=== PATIENT | female | born 1995 | race Two or more races ===

== ENCOUNTER 2024-12-27 12:31 | Emergency (ER) | payer MEDICAID, SELFPAY ==
[2024-12-27 13:08] VITALS: BP 122/79; PULSE 60; RESP 16; TEMP 37.1; O2SAT 99; BMI 18.5
--- NOTE | 2024-12-27 13:13 | PD.EDSKIN ---
ED Skin Abcess FB-RME/HPI General Chief complaint: Extremity Problem,Nontraumatic Stated complaint: Right lower leg edema X 1 week Time Seen by Provider: 12/27/24 13:05 Arrival date/time: 12/27/24 12:31 29-year-old female presents to the emergency room today for complaints of infected insect bites right lower extremity patient reports that she started scratching at some mosquito bites on her right leg which caused her to become swollen. Patient was no fever nausea vomiting reports no chance of Limitations: no limitations Related Data Previous Rx's ?Medication ?Instructions ?Recorded cephalexin 500 mg capsule (Keflex) 500 mg PO QID #40 caps 06/25/20 nitrofurantoin 100 mg PO BID #14 caps 06/04/21 monohydrate/macrocrystals 100 mg capsule (Macrobid) phenazopyridine 100 mg tablet 100 mg PO TID PRN pain 6 doses #6 06/04/21 (Pyridium) tabs clindamycin HCl 300 mg capsule 300 mg PO TID #30 caps 07/25/22 ibuprofen 800 mg tablet 800 mg PO TID PRN pain #30 tabs 07/25/22 diphenhydramine HCl 25 mg capsule 25 mg PO Q8H PRN allergic symptoms 12/27/24 (Benadryl) #30 caps doxycycline hyclate 100 mg capsule 100 mg PO BID 7 days #14 caps 12/27/24 mupirocin 2 % topical ointment 1 applic topical TID 10 days #22 12/27/24 grams Allergies Allergy/AdvReac Type Severity Reaction Status Date / Time No Known Allergies Allergy Verified 12/27/24 12:37 Review of Systems Review of Systems Systems Reviewed: All systems reviewed, normal except as documented Constitutional Constitutional: Reports system reviewed and no additional complaints, except as documented, Denies fever(s) and Denies headache(s) Eyes Eyes: Reports system reviewed and no additional complaints, except as documented and Denies blurry vision ENT Ears, Nose, Mouth, and Throat: Reports system reviewed and no additional complaints, except as documented, Denies headache(s), Denies nasal congestion and Denies nasal discharge Cardiovascular Cardiovascular: Reports system reviewed and no additional complaints, except as documented, Denies chest pain and Denies dyspnea Respiratory Respiratory: Reports system reviewed and no additional complaints, except as documented, Denies chest congestion, Denies cough and Denies dyspnea Gastrointestinal Gastrointestinal: Reports system reviewed and no additional complaints, except as documented and Denies abdominal pain Integumentary/Breasts Skin/Breast: Reports system reviewed and no additional complaints, except as documented, Reports pruritus, Denies rash and Reports other (Infected insect bites right lower extremity) Neurologic Neurologic: Reports system reviewed and no additional complaints, except as documented, Reports as per HPI and Denies headache(s) Past Medical History Past Medical History NEUROLOGIC: Negative Neurological Disorders or Seizures CARDIAC: Negative Cardiac Disorders or Congestive Heart Failure RESPIRATORY: Negative Chronic Obstructive Pulmonary Disease (COPD) GASTROINTESTINAL: Positive Gastrointestinal Disorders and Gall Bladder Disease (LAP 2012) GENITOURINARY: Negative Genitourinary Disorders or Renal Disease REPRODUCTIVE: Positive Previous Pregnancies (x4 including 1 SAB); Negative Pelvic Inflammatory Disease MUSCULOSKELETAL: Positive Musculoskeletal Disorders ENDOCRINE: Negative Endocrine Disorders, Diabetes Mellitus Type 1 or Diabetes Mellitus Type 2 HEMATOLOGIC: Positive Anemia; Negative Blood Disorders OTHER HISTORY: Positive Chicken Pox; Negative Hospitalization, Autoimmune Disease, Down Syndrome, Developmental Delay, Shingles, Falls, Blood Transfusions, Blood Transfusion Reaction, Anesthesia Reactions, Organ Transplant, Chemotherapy or Radiation Therapy Family History FAMILY HISTORY: Positive Family Respiratory Disorders (MOTHER (ASTHMA)), Family Cardiac Disorders (MOTHER (HTN)), Family Gastrointestinal Problems (SISTER (CHOLECYSTECTOMY)) and Family Surgery (MOTHER,SISTER,FATHER); Negative Family Psychiatric Problems, Family Cancer or Family Anesthesia Reaction Surgical History SURGICAL: Negative Cardiac Surgery, Section or Organ Transplant Social History SMOKING STATUS: Never smoker SECOND HAND EXPOSURE: No ED Exam General Limitations: Present no limitations General appearance: Present alert and in no apparent distress Head Head exam: Present atraumatic, normocephalic and normal inspection Eye Eye exam: Present normal appearance, PERRL and EOMI ENT ENT exam: Present normal exam, normal oropharynx and mucous membranes moist Neck Neck exam: Present normal inspection, full ROM and trachea midline Chest Chest inspection: Present normal inspection and symmetric chest wall rise Respiratory Respiratory exam: Present normal lung sounds bilaterally Cardiovascular Cardiovascular exam: Present regular rate, normal rhythm and normal heart sounds Abdominal Exam Abdominal exam: Present soft and normal bowel sounds Extremities Exam Extremities exam: Present full ROM and tenderness (Right lower extremity insect bites, erythema, infection) Back Exam Back exam: Present normal inspection and full ROM Neurological Exam Neurological exam: Present alert, oriented X3 and CN II-XII intact Psychiatric Psychiatric exam: Present normal affect and normal mood Skin Skin exam: Present warm, dry and other (Right lower extremity insect bites, erythema, infection) Course Quality Measures none Orders Category Date Time Status Dexamethasone Inj [Decadron Inj] Med 12/27/24 13:10 Discontinued 10 mg PO X1 ONE DiphenhydrAMINE [Benadryl] Med 12/27/24 13:10 Discontinued 25 mg PO X1 ONE Vital Signs Vital signs: Vital Signs Temperature 98.8 F 12/27/24 13:08 Pulse Rate 60 12/27/24 13:08 Respiratory Rate 16 12/27/24 13:08 Blood Pressure 122/79 12/27/24 13:08 Pulse Oximetry (%) 99 12/27/24 13:08 Oxygen Delivery Method Room Air 12/27/24 13:08 O2 saturation 99% on room air within normal limits Skin / Abscess / Foreign Body MDM Narrative MDM Narrative:: 29-year-old female presents to the emergency room today for complaints of infected insect bites right lower extremity patient reports that she started scratching at some mosquito bites on her right leg which caused her to become swollen. Patient was no fever nausea vomiting reports no chance of On exam patient well-appearing patient does not appear ill or toxic no acute distress Exam is consistent with infected insect bites Patient medicated here discharged home medication Patient discharged home in no distress to follow-up with primary care doctor in the next 24 to 48 hours and for any worsening symptoms to return to the ER immediately Patient data External records reviewed:: [facility] previous records Clinical information provided by:: patient Social determinants that could affect healthcare access:: none Patient has the following chronic illnesses:: None How is presenting disease/condition affected by chronic disease/condition?: no chronic disease Evaluation data The following diagnostics were reviewed and interpreted by me:: other (specify) (N/A) Lab and/or radiology exams considered but not ordered:: Consider not ordered Interpretation Summary: N/A Medications / Prescriptions Medications or Prescriptions considered but not ordered:: Given Medication administrations:: Medication Administration History Discontinued Medications Dexamethasone Sodium Phosphate (Dexamethasone Sod Phos Inj 10 Mg/Ml Vial) 10 mg PO X1 ONE Stop: 12/27/24 13:11 Last Admin: 12/27/24 13:32 Dose: 10 mg Documented By: Diphenhydramine HCl (Diphenhydramine 25 Mg Capsule) 25 mg PO X1 ONE Stop: 12/27/24 13:11 Last Admin: 12/27/24 13:31 Dose: 25 mg Documented By: Given Consultations Consultation(s) initiated? (list below): No Diagnosis Skin/Abscess Differential Diagnosis: abscess of skin or subcutaneous tissue, cellulitis and insect bites Most likely diagnosis given after review of the tests above:: Infected insect bites Admission Indicated Admission indicated?: not indicated Admission Request Was there a request for admission?: No Disposition Plan Disposition Plan: Discharge Discharge Attestation Discharge Attestation: The patient and all family members were given an opportunity to ask questions and understood the discharge instructions. Discharge instructions specifically effects, indications for sooner follow up or return to the emergency department, and the expected course of current diagnosis. Patient condition: Stable Discharge Plan Plan Patient Disposition: HOME (Self Care) Discharge Disposition comment: Stable Prescriptions/Referrals Prescriptions/Med Rec: New doxycycline hyclate 100 mg capsule 100 mg PO BID 7 Days Qty: 14 0RF mupirocin 2 % ointment 1 applic topical TID 10 Days Qty: 22 0RF diphenhydramine HCl [Benadryl] 25 mg capsule 25 mg PO Q8H PRN (Reason: allergic symptoms) Qty: 30 0RF No Action cephalexin [Keflex] 500 mg capsule 500 mg PO QID Qty: 40 0RF nitrofurantoin monohyd/m-cryst [Macrobid] 100 mg capsule 100 mg PO BID Qty: 14 0RF Rx Instructions: must administer with a meal/food phenazopyridine [Pyridium] 100 mg tablet 100 mg PO TID PRN (Reason: pain) Qty: 6 0RF clindamycin HCl 300 mg capsule 300 mg PO TID Qty: 30 0RF ibuprofen 800 mg tablet 800 mg PO TID PRN (Reason: pain) Qty: 30 0RF Problem List Clinical Impression: Insect bite of leg, right, infected Patient/Caregiver Discharge Instructions Education Materials: ED Insect Bite Additional Instructions: Please follow up with your primary care doctor in the next 24-48hrs for any worsening symptoms return here immediately Print Language: [place]atian Stand Alone Forms: [employer] Award Info., Patient Portal Info Letter PA/OPHTHALMIC DISPENSER Supervising Physician PA/OPHTHALMIC DISPENSER Supervising Physician: Dr. holbrook
[2024-12-27] MEDS: DEXAMETHASONE SOD PHOS INJ 10 MG/ML VIAL PO (13:32)
== END 2024-12-27 14:25 | disposition home or self-care (01) ==
LOC: SERX 13:34
PROVIDERS: Emergency Provider Family Medicine; PCP Family Medicine
DX: S80.861A Insect bite (nonvenomous), right lower leg, initial encounter (principal); W57.XXXA Bitten or stung by nonvenomous insect and other nonvenomous arthropods, initial encounter
CPT/HCPCS: 99283; J1100; A9270